=== PATIENT | male | born 1955 | race Caucasian/White ===

== ENCOUNTER 2019-02-03 06:57 | Emergency (ER) | payer OTHER ==
[~2019-02-03] VITALS: Ht 175.3 cm; Wt 79.4 kg
--- NOTE | 2019-02-03 07:15 | NUR ---
Report to Taj Rios RN
[2019-02-03] MEDS ORDERED: IBUPROFEN 600 MG TABLET ONE (07:41)
[2019-02-03] MEDS ORDERED: HYDROCODONE/APAP 5-325MG TABLET ONE (07:42)
[2019-02-03] MEDS ORDERED: IBUPROFEN 600 MG TABLET PO ONE (07:45)
[2019-02-03] MEDS ORDERED: HYDROCODONE/APAP 5-325MG TABLET PO ONE (07:45)
--- NOTE | 2019-02-03 08:17 | NUR ---
Patient discharged to home in stable conditon. Written and verbal after care instructions given to patient. Patient verbalizes understanding of instructions.
== END 2019-02-03 08:17 | disposition home or self-care (01) ==
LOC: ER 07:05
DX: M25.512 Pain in left shoulder (principal); E78.5 Hyperlipidemia, unspecified; E11.9 Type 2 diabetes mellitus without complications
CPT/HCPCS: 73030; A4663